=== PATIENT | male | born 1955 | race Caucasian/White ===

== ENCOUNTER 2017-01-15 16:08 | Inpatient (IN) | payer MEDICAID ==
[~2017-01-15] VITALS: Ht 175.3 cm; Wt 71.2 kg
[~2017-01-15 16:08] MED LIST: BENADRYL25 M2 PO; BP MED; DILAUDID 2MG TAB2 MG PO; EC NAPROSYN500 MG PO; LEVAQUIN 750MG750 M1 PO; MS CONTIN 330 MG/TAB PO; NAPROSYN 2250 MG/TAB PO; NORCO 325 MG-51 TAB PO; NORVASC 5MG5 MG/TAB PO; PERCOCET 325 MG1 TA2 PO; PREDNISONE10 MG PO; PRINIVIL20 MG PO; PROAIR HFA0.09 MG/AC IH; PROVENTIL0.09 MG/A1 IH; XANAX 0.5MG0.5 MG PO; [UNRECOGNIZED DRUG - OTHER] TP
[2017-01-15 17:07] LABS: BASO % 0.3 % (0.0-2.0); GRAN # 7.9 (1.4-6.5); HEMATOCRIT 39.5 % (42.0-52.0); LYMPH # 0.9 (1.2-3.4); LYMPH % 8.9 % (20.0-51.0); MEAN CELL VOLUME 93 fl (80.0-100.0); MEAN CORPUSCULAR HEMOGLOBIN 30 pg (27.0-31.0); MEAN CORPUSCULAR HGB CONC 33 g/dl (33.0-37.0); MEAN PLATELET VOLUME 8.7 fl (7.4-10.4); MONO # 0.9 (0.1-0.6); MONO % 9.5 % (1.7-9.3); PLATELET COUNT 266 K/mm3 (130-400); RED BLOOD COUNT 4.27 M/mm3 (4.20-5.60); REDCELL DISTRIBUTION WIDTH-CV 13.2 % (11.5-14.5); WHITE BLOOD COUNT 9.7 K/mm3 (4.8-10.8)
[2017-01-15 17:16] LABS: ADJUSTED CALCIUM 9.5 mg/dL (8.4-10.2); ALBUMIN 4.1 gm/dL (3.5-5.0); BILIRUBIN,TOTAL 0.8 mg/dL (0.0-1.0); CALCIUM 9.6 mg/dL (8.4-10.2); CREATININE, serum 0.94 mg/dL (0.66-1.25); POTASSIUM 4.9 mmol/L (3.4-5.0); TOTAL PROTEIN 7.6 gm/dL (6.4-8.2)
[2017-01-15] MEDS ORDERED: DILAUDID 2MG TAB2 MG PO (20:19)
[2017-01-15 21:43] VITALS: BP 107/70; PULSE 94; TEMP 98.2
[2017-01-16] VITALS (7 sets, daily range): BP systolic 100–118; BP diastolic 64–91; PULSE 73–99; TEMP 96.8–98.7
[2017-01-16 07:24] LABS: BASO % 0.6 % (0.0-2.0); GRAN # 5.2 (1.4-6.5); GRAN % 77.4 % (42.2-75.2); HEMATOCRIT 39.8 % (42.0-52.0); HEMOGLOBIN 12.8 g/dl (13.5-18.0); LYMPH # 0.7 (1.2-3.4); LYMPH % 10.6 % (20.0-51.0); MEAN CELL VOLUME 94 fl (80.0-100.0); MEAN CORPUSCULAR HEMOGLOBIN 30 pg (27.0-31.0); MEAN CORPUSCULAR HGB CONC 32 g/dl (33.0-37.0); MEAN PLATELET VOLUME 9.1 fl (7.4-10.4); MONO # 0.8 (0.1-0.6); MONO % 11.3 % (1.7-9.3); PLATELET COUNT 285 K/mm3 (130-400); RED BLOOD COUNT 4.25 M/mm3 (4.20-5.60); REDCELL DISTRIBUTION WIDTH-CV 13.2 % (11.5-14.5); WHITE BLOOD COUNT 6.7 K/mm3 (4.8-10.8)
[2017-01-16 07:28] LABS: ALBUMIN 3.5 gm/dL (3.5-5.0); BILIRUBIN,TOTAL 0.5 mg/dL (0.0-1.0); CREATININE, serum 0.77 mg/dL (0.66-1.25); TOTAL PROTEIN 6.6 gm/dL (6.4-8.2)
[2017-01-16 07:41] LABS: ADJUSTED CALCIUM 9.1 mg/dL (8.4-10.2); CALCIUM 8.7 mg/dL (8.4-10.2)
[2017-01-17] VITALS (12 sets, daily range): BP systolic 97–130; BP diastolic 63–87; PULSE 92–114; TEMP 96.8–99.5
[2017-01-17 14:06] LABS: ADJUSTED CALCIUM 9.1 mg/dL (8.4-10.2); ALANINE AMINOTRANSFERASE 21 U/L (21-72); ALBUMIN 3.6 gm/dL (3.5-5.0); ALKALINE PHOSPHATASE 98 U/L (50-136); ANION GAP 7 mmol/L (7-16); BILIRUBIN,TOTAL 0.7 mg/dL (0.0-1.0); CALCIUM 8.8 mg/dL (8.4-10.2); CARBON DIOXIDE 30 mmol/L (22-30); CHLORIDE 95 mmol/L (98-107); GLUCOSE 113 mg/dL (74-106); MAGNESIUM 1.7 mg/dL (1.6-2.3); PHOSPHOROUS 3.8 mg/dL (2.5-4.5); POTASSIUM 5.3 mmol/L (3.4-5.0); SODIUM 132 mmol/L (137-145); TOTAL PROTEIN 6.9 gm/dL (6.4-8.2)
[2017-01-17 14:15] LABS: BLOOD UREA NITROGEN < 2 mg/dL (9-20)
[2017-01-18 00:11] VITALS: BP 96/57; PULSE 50; TEMP 97.9
[2017-01-18 04:29] VITALS: BP 119/73; PULSE 108; TEMP 98.3
[2017-01-18 09:45] VITALS: BP 104/70; PULSE 108; TEMP 98.7
[2017-01-18 13:21] VITALS: BP 94/69; PULSE 90; TEMP 98.1
[2017-01-18 17:41] VITALS: BP 105/7; PULSE 95; TEMP 97.9
[2017-01-18 20:07] VITALS: BP 106/65; PULSE 96; TEMP 98.2
[2017-01-19 00:39] VITALS: BP 102/88; PULSE 93; TEMP 98.2
[2017-01-19 02:39] VITALS: BP 103/70; PULSE 92; TEMP 98.6
[2017-01-19 07:55] VITALS: BP 105/67; PULSE 98; TEMP 98.2
[2017-01-19 07:56] LABS: ADJUSTED CALCIUM 9.3 mg/dL (8.4-10.2); ALBUMIN 3.3 gm/dL (3.5-5.0); BILIRUBIN,TOTAL 0.6 mg/dL (0.0-1.0); CALCIUM 8.7 mg/dL (8.4-10.2); CREATININE, serum 0.65 mg/dL (0.66-1.25); MAGNESIUM 1.8 mg/dL (1.6-2.3); PHOSPHOROUS 3.9 mg/dL (2.5-4.5); POTASSIUM 4.3 mmol/L (3.4-5.0); TOTAL PROTEIN 6.5 gm/dL (6.4-8.2)
[2017-01-19 12:11] VITALS: BP 112/65; PULSE 93; TEMP 98.2
== END 2017-01-19 13:49 | disposition home or self-care (01) | DRG 327 ==
LOC: COL.ER 16:08 → MEDICAL 19:17
PROVIDERS: Emergency Medicine; Family Medicine; Surgery
PROC: 0DH60UZ Insertion of Feeding Device into Stomach, Open Approach (ICD-10-PCS; principal; 2017-01-17 08:00)
DX: C15.3 Malignant neoplasm of upper third of esophagus (principal); C78.7 Secondary malignant neoplasm of liver and intrahepatic bile duct; C79.51 Secondary malignant neoplasm of bone; E44.0 Moderate protein-calorie malnutrition; E87.1 Hypo-osmolality and hyponatremia; Z85.118 Personal history of other malignant neoplasm of bronchus and lung; I10 Essential (primary) hypertension; Z87.891 Personal history of nicotine dependence; J43.9 Emphysema, unspecified
CPT/HCPCS: 99223-AI; 99232-AI; 99238; B4087; J0690; J1170; J1650; J2405; J2704; J3010; J7030; Q9967

== ENCOUNTER → 2017-03-25 | Outpatient (CLI) | payer MEDICAID ==
[~2017-03-25] MED LIST changes: +ATIVAN 0.50.5 MG/TAB PO; +CHEMO MED; +MIRALAX PA17 GM/Dose PO; +ROXANOL 20MG20 MG/ML SL; +ZOFRAN ODT4 MG PO
== END ==
LOC: COL.RAD 14:03
DX: C34.90 Malignant neoplasm of unspecified part of unspecified bronchus or lung (principal); M79.89 Other specified soft tissue disorders

== ENCOUNTER 2017-04-07 14:36 | Emergency (ER) | payer MEDICAID ==
[~2017-04-07] VITALS: Ht 175.3 cm; Wt 68.2 kg
[~2017-04-07 14:36] MED LIST changes: -ATIVAN 0.50.5 MG/TAB PO; -CHEMO MED; -MIRALAX PA17 GM/Dose PO; -ROXANOL 20MG20 MG/ML SL; -ZOFRAN ODT4 MG PO
[2017-04-07 14:39] VITALS: TEMP 98.3
[2017-04-07] MEDS ORDERED: CHEMO MED (15:21)
[2017-04-07 15:27] VITALS: BP 114/82; PULSE 90
== END 2017-04-07 15:31 | disposition home or self-care (01) ==
LOC: COL.ER 14:36
DX: K94.23 Gastrostomy malfunction (principal); C15.9 Malignant neoplasm of esophagus, unspecified; C79.9 Secondary malignant neoplasm of unspecified site

== ENCOUNTER 2017-04-26 10:26 | Emergency (ER) | payer MEDICAID ==
[~2017-04-26] VITALS: Ht 175.3 cm; Wt 63.2 kg
[~2017-04-26 10:26] MED LIST changes: +CHEMO MED
[2017-04-26 10:28] VITALS: BP 101/64; TEMP 98
[2017-04-26 11:23] VITALS: PULSE 88
== END 2017-04-26 11:23 | disposition home or self-care (01) ==
LOC: COL.ER 10:26
DX: Z43.1 Encounter for attention to gastrostomy (principal); C15.9 Malignant neoplasm of esophagus, unspecified

== ENCOUNTER 2017-05-16 23:42 | Emergency (ER) | payer MEDICAID ==
[~2017-05-16] VITALS: Ht 175.3 cm; Wt 65.0 kg
[2017-05-16 23:44] VITALS: BP 120/81; TEMP 98
[2017-05-17 00:30] VITALS: PULSE 102
== END 2017-05-17 00:35 | disposition home or self-care (01) ==
LOC: COL.ER 23:42
DX: Z43.1 Encounter for attention to gastrostomy (principal); Z46.59 Encounter for fitting and adjustment of other gastrointestinal appliance and device; Z85.118 Personal history of other malignant neoplasm of bronchus and lung; Z87.891 Personal history of nicotine dependence; Z90.2 Acquired absence of lung [part of]

== ENCOUNTER 2017-05-21 23:00 | Inpatient (IN) | payer MEDICAID ==
[~2017-05-21] VITALS: Ht 175.3 cm; Wt 62.2 kg
[2017-05-21 23:47] LABS: BASO % 0.3 % (0.0-2.0); GRAN # 7.3 (1.4-6.5); GRAN % 77.5 % (42.2-75.2); LYMPH # 0.9 (1.2-3.4); LYMPH % 9.6 % (20.0-51.0); MEAN CELL VOLUME 88 fl (80.0-100.0); MEAN CORPUSCULAR HGB CONC 33 g/dl (33.0-37.0); MEAN PLATELET VOLUME 9.7 fl (7.4-10.4); MONO # 1.1 (0.1-0.6); MONO % 12.1 % (1.7-9.3); PLATELET COUNT 195 K/mm3 (130-400); RED BLOOD COUNT 4.14 M/mm3 (4.20-5.60); WHITE BLOOD COUNT 9.4 K/mm3 (4.8-10.8)
[2017-05-21 23:52] LABS: ADJUSTED CALCIUM 10.4 mg/dL (8.4-10.2); ALBUMIN 3.3 gm/dL (3.5-5.0); BILIRUBIN,TOTAL 7.5 mg/dL (0.0-1.0); CALCIUM 9.8 mg/dL (8.4-10.2); CREATININE, serum 0.83 mg/dL (0.66-1.25); INR 1.3 (0.8-3.0); POTASSIUM 3.7 mmol/L (3.4-5.0); PROTHROMBIN TIME 14.7 SECONDS (9.7-12.8); TOTAL PROTEIN 6.8 gm/dL (6.4-8.2)
[2017-05-22] LABS: HEMATOCRIT 36.6 % (42.0-52.0); HEMOGLOBIN 11.9 g/dl (13.5-18.0); MEAN CORPUSCULAR HEMOGLOBIN 29 pg (27.0-31.0); REDCELL DISTRIBUTION WIDTH-CV 24.1 % (11.5-14.5)
[2017-05-22] MEDS ORDERED: MIRALAX PA17 GM/Dose PO (00:55)
[2017-05-22 02:10] VITALS: BP 99/70; PULSE 90; TEMP 97
[2017-05-22 07:08] LABS: GRAN # 5.8 (1.4-6.5); GRAN % 87.4 % (42.2-75.2); LYMPH # 0.7 (1.2-3.4); LYMPH % 10.2 % (20.0-51.0); MEAN CELL VOLUME 90 fl (80.0-100.0); MEAN CORPUSCULAR HGB CONC 32 g/dl (33.0-37.0); MEAN PLATELET VOLUME 9.2 fl (7.4-10.4); MONO # 0.1 (0.1-0.6); MONO % 1.5 % (1.7-9.3); PLATELET COUNT 196 K/mm3 (130-400); RED BLOOD COUNT 3.96 M/mm3 (4.20-5.60); REDCELL DISTRIBUTION WIDTH-CV 24.5 % (11.5-14.5); WHITE BLOOD COUNT 6.6 K/mm3 (4.8-10.8)
[2017-05-22 07:13] LABS: HEMATOCRIT 35.7 % (42.0-52.0); HEMOGLOBIN 11.4 g/dl (13.5-18.0); MEAN CORPUSCULAR HEMOGLOBIN 29 pg (27.0-31.0)
[2017-05-22 07:21] LABS: ADJUSTED CALCIUM 9.7 mg/dL (8.4-10.2); ALBUMIN 2.9 gm/dL (3.5-5.0); BILIRUBIN,TOTAL 6.7 mg/dL (0.0-1.0); CALCIUM 8.8 mg/dL (8.4-10.2); CREATININE, serum 0.82 mg/dL (0.66-1.25); POTASSIUM 4.5 mmol/L (3.4-5.0); TOTAL PROTEIN 6.3 gm/dL (6.4-8.2)
[2017-05-22 07:48] VITALS: BP 95/61; PULSE 84; TEMP 97.2
[2017-05-22 11:01] VITALS: BP 99/63; PULSE 86; TEMP 97.8
[2017-05-22 15:42] VITALS: BP 94/63; PULSE 91; TEMP 9738
[2017-05-22] MEDS ORDERED: ATIVAN 0.50.5 MG/TAB PO (16:10)
[2017-05-22] MEDS ORDERED: ROXANOL 20MG20 MG/ML SL (16:12)
[2017-05-22] MEDS ORDERED: ZOFRAN ODT4 MG PO (16:18)
== END 2017-05-22 19:30 | disposition hospice, home (50) | DRG 435 ==
LOC: COL.ER 23:00 → MEDICAL 05-22 01:00
PROVIDERS: Emergency Medicine; Nurse Practitioner Family
DX: C78.7 Secondary malignant neoplasm of liver and intrahepatic bile duct (principal); E43 Unspecified severe protein-calorie malnutrition; C34.01 Malignant neoplasm of right main bronchus; C79.51 Secondary malignant neoplasm of bone; C77.1 Secondary and unspecified malignant neoplasm of intrathoracic lymph nodes; E87.1 Hypo-osmolality and hyponatremia; C15.3 Malignant neoplasm of upper third of esophagus; E87.2 Acidosis; Z51.5 Encounter for palliative care; I10 Essential (primary) hypertension; J44.9 Chronic obstructive pulmonary disease, unspecified; Z87.891 Personal history of nicotine dependence; E86.0 Dehydration
CPT/HCPCS: 99239; C9113; J0456; J0696; J1170; J2405; J2765; J2930; J7030; J7050